=== PATIENT | male | born 1965 | race American Indian/Alaskan Native ===

== ENCOUNTER 2017-08-01 17:17 | Inpatient (IN) | payer MEDICAID, OTHER ==
[2017-08-01 18:24] LABS: EOS # 0.1 K/uL (0.0-0.7); EOS % 2.3 % (0.0-4.0); HEMOGLOBIN 12.6 g/dL (12.0-18.0); LYMPH # 0.8 K/uL (1.0-4.3); LYMPH % 33.2 % (20.0-40.0); MEAN CELL VOLUME 90.8 fL (80.0-94.0); MEAN CORPUSCULAR HEMOGLOBIN 30.6 pg (27.0-31.0); MEAN CORPUSCULAR HGB CONC 33.7 g/dL (33.0-37.0); MEAN PLATELET VOLUME 7.2 fL (7.2-11.7); MONO # 0.4 K/uL (0.0-0.8); MONO % 17.5 % (0.0-10.0); NEUT # 1.1 K/uL (1.8-7.0); NRBC % 0.1 % (0.0-2.0); RBC 4.13 Mil/uL (4.40-5.90); RED CELL DISTRIBUTION WIDTH 13.5 % (11.5-14.5); WHITE BLOOD COUNT 2.5 K/uL (4.8-10.8)
[2017-08-01 18:28] LABS: SQUAMOUS EPITHIAL < 1 /hpf (0-5); URINE BACTERIA RARE (<OCC); URINE BILIRUBIN NEGATIVE (NEGATIVE); URINE BLOOD NEGATIVE (NEGATIVE); URINE CLARITY Clear (Clear); URINE COLOR Yellow (YELLOW); URINE GLUCOSE (UA) NORMAL (Normal); URINE LEUKOCYTE ESTERASE NEG Leu/uL (Negative); URINE PROTEIN NEGATIVE (NEGATIVE); URINE UROBILINOGEN NORMAL mg/dL (0.2-1.0)
[2017-08-01 18:38] LABS: ALB/GLOB RATIO 1.2 (1.0-2.1); ALBUMIN 4.4 g/dL (3.5-5.0); ALT/SGPT 11 U/L (21-72); AST/SGOT 57 U/L (17-59); BLOOD UREA NITROGEN 12 mg/dL (9-20); CALCIUM 9.3 mg/dl (8.6-10.4); GFR AFRICAN-AMERICAN > 60; GFR NON-AFRICAN AMERICAN > 60
[2017-08-01 18:40] LABS: BARBITURATES, UR NEGATIVE (NEGATIVE); BENZODIAZEPINES, UR NEGATIVE (NEGATIVE); OPIATES, UR NEGATIVE (NEGATIVE); PHENCYCLIDINE, UR NEGATIVE (NEGATIVE)
--- NOTE | 2017-08-01 20:25 | C.PDOC ---
History Of Present Illness <Nicholas De Jesus DO - Last Filed: 08/01/17 20:27> <Urbano De Anda - Last Filed: 08/02/17 01:14> 51 year old male presents to the ED for psychiatric evaluation. Patient admits to experiencing auditory and visual hallucinations. He admits to alcohol use earlier today. Patient has history of schizophrenia and has been noncompliant with his medications. Patient denies suicidal/homicidal ideation or any physical complaints at this time. (Nicholas De Jesus DO) History Per: Patient History/Exam Limitations: no limitations Onset/Duration Of Symptoms: Hrs Current Symptoms Are (Timing): Still Present Suicide/Self Injury Attempted (Context): None Modifying Factor(s): None Associated Symptoms: denies: Suicidal Thoughts, Suicidal Plan Involuntary Hold By: None Recent travel outside of the [place]: No Additional History Per: Patient <Nicholas De Jesus DO - Last Filed: 08/01/17 20:27> <Urbano De Anda - Last Filed: 08/02/17 01:14> Chief Complaint (Nursing): Psychiatric Evaluation Past Medical History Reviewed: Historical Data, Nursing Documentation, Vital Signs - Medical History PMH: Anxiety, Bipolar Disorder, Schizophrenia Surgical History: No Surg Hx Family History: States: Unknown Family Hx - Social History Hx Tobacco Use: No Hx Alcohol Use: Yes Hx Substance Use: No - Immunization History Hx Tetanus Toxoid Vaccination: No Hx Influenza Vaccination: No Hx Pneumococcal Vaccination: No <Nicholas De Jesus DO - Last Filed: 08/01/17 20:27> Vital Signs: Last Vital Signs Temp 98 F 08/01/17 22:56 Pulse 110 H 08/01/17 22:56 Resp 20 08/01/17 22:56 BP 120/70 08/01/17 22:56 Pulse Ox 98 08/01/17 22:56 Review Of Systems Psych: Positive for: Other (auditory and visual hallucinations ). Negative for : Suicidal ideation <Nicholas De Jesus DO - Last Filed: 08/01/17 20:27> Physical Exam - Physical Exam Appears: Non-toxic, No Acute Distress Skin: Normal Color, Warm, Dry Head: Atraumatic, Normacephalic Eye(s): bilateral: Normal Inspection Oral Mucosa: Moist Neck: Supple Chest: Symmetrical, No Deformity, No Tenderness Cardiovascular: Rhythm Regular, No Murmur Respiratory: Normal Breath Sounds, No Rales, No Rhonchi, No Wheezing Extremity: Normal ROM, Capillary Refill (less than 2 secods ) Neurological/Psych: Oriented x3, Normal Speech, Normal Cognition <Milkayaredmarko ODENNicholas - Last Filed: 08/01/17 20:27> ED Course And Treatment - Laboratory Results Result Diagrams: 08/01/17 18:18 08/01/17 18:18 O2 Sat by Pulse Oximetry: 94 <Milkayaredmarko DONicholas - Last Filed: 08/01/17 20:27> - Laboratory Results Result Diagrams: 08/01/17 18:18 08/01/17 18:18 Lab Interpretation: Abnormal (ETOH 349H) Reevaluation Time: 01:14 Reassessment Condition: Improved - Physician Consult Information Outcome Of Conversation: 0115: d/w Crisis, Maggie, olga to admit to 5E <Urbano De Anda - Last Filed: 08/02/17 01:14> Medical Decision Making <Nicholas De Jesus DO - Last Filed: 08/01/17 20:27> <Urbano De Anda - Last Filed: 08/02/17 01:14> Medical Decision Making: Progress: Bloodwork and urinalysis ordered and reviewed. (Nicholas De Jesus DO) ETOH abuse, Schizophrenia (Urbano De Anda) Disposition <Liza ODENNicholas - Last Filed: 08/01/17 20:27> Doctor Will See Patient In The: Hospital Counseled Patient/Family Regarding: Studies Performed, Diagnosis - Disposition Disposition Time: 01:14 <Urbano De Anda - Last Filed: 08/02/17 01:14> - Disposition Disposition: HOSPITALIZED Condition: GOOD Forms: [email or web address] (Persian) - Clinical Impression Clinical Impression: Alcohol abuse with intoxication, Schizophrenia - Scribe Statement The provider has reviewed the documentation as recorded by the Scribe (Lyric Chavez) <Nicholas De Jesus DO - Last Filed: 08/01/17 20:27> <Urbano De Anda - Last Filed: 08/02/17 01:14> - Scribe Statement Provider Attestation: All medical record entries made by the Scribe were at my direction and personally dictated by me. I have reviewed the chart and agree that the record accurately reflects my personal performance of the history, physical exam, medical decision making, and the department course for this patient. I have also personally directed, reviewed, and agree with the discharge instructions and disposition. (Nicholas De Jesus DO)
--- NOTE | 2017-08-02 03:38 | PCM.BM ---
<Sylvia Flores - Last Filed: 08/02/17 03:37> Treatment Plan Problems - Problems identified on initial assessmt Suicidal Ideation Date Initiated: 08/02/17 Time Initiated: 02:45 Assessment reference: NA Status: Monitor Alcohol Abuse Date Initiated: 08/02/17 Time Initiated: 02:45 Assessment reference: NA Status: Active Treatment assets and liabiliti Patient Assests: ADL independent, negotiates basic needs Patient Liabilities: substance abuse (ETOH), medical problems (HTN, Hyperlipidemia) - Milieu Protocol Maintain good personal hygiene: daily Encourage regular showers, daily Remind patient to perform daily oral care, every shift Assist patient to perform ADL's Conduct patient checks and document Observation sheet: Q15 minutes Maintain personal safety: every shift Educate patient to report safety concerns to staff, every shift Monitor environment for contraband/sharps Medication safety: Monitor for expected outcome, potential side effects: every shift, Assess barriers to learning: every shift, Assess readiness for medication education: every shift <Mary Jane Eisenberg - Last Filed: 08/04/17 11:36> - Diagnosis (1) Major depressive disorder, recurrent, severe with psychotic features Status: Acute Interventions: 08/04/17 11:36 * Assess/adjust medications daily and /or as needed * See patient on an individual basis 7x/week to assess symptoms of depression * Monitor for side effects & effectiveness of medications * <Hyacinth Lehman - Last Filed: 08/04/17 18:07> Family Contact Family involvement: Patient does not wish Family/SO involvement Family contact: Patient declines to allow family contact at present - Goals for Treatment Patient goals for treatment: "I want to return to [facility] Discharge/Continuing Care - Education Needs Education Needs: Patient Medication, Patient Diagnosis/Disease Process, Patient Coping Skills - Discharge Discharge Criteria: Free of Suicidal thoughts, Normal sleep pattern, Ability to care for self, No longer exhibiting s/s of withdrawal, Reduction of target symptoms Discharge to:: Home - Treatment Team Participation Discussed with Family/SO: No Was Patient/Family/SO present at Treatment Team Meeting: Yes
[2017-08-02] MEDS: Multiple Vitamins Tab PO SCH (09:10)
--- NOTE | 2017-08-02 15:15 | PCM.PSYCH ---
Initial Psychiatric Evaluation - Initial Psychiatric Evaluation Type of Admission: Voluntary Legal Status: Capacity Chief Complaint (in patient's own words): I am not right I hears voices, and sees spots and I came to the hospital for help. History of Present Illness and Precipitating Events: Patient is a 51 years old -Sammar[place] male with history of depression and alcohol use. Patient is known to psychiatric inpatient unit. Patient came with complaints of I am not right, hear voices and sees spots. Patient was poor historian and guarded. History was obtained from previous records. According to previous record patient had multiple same symptoms every time. According to patient he was feeling depression and hearing voices command type telling him to hurt himself and other. However, he denied any intention or plan. Patient reported he relapsed on alcohol and drank 1 pint of alcohol and 2 beers yesterday. Denied use of any other drugs. Current Medications: Active Medications Generic Name Dose Route Start Last Admin Trade Name Freq PRN Reason Stop Dose Admin Chlordiazepoxide 50 mg 08/02/17 06:00 08/02/17 12:04 Librium PO 08/08/17 05:59 50 mg Q6H HARPREET Administration Taper Clonidine HCl 0.1 mg 08/02/17 02:25 Catapres PO Q4H PRN Symptoms of alcohol withdrawl Escitalopram Oxalate 5 mg 08/02/17 10:00 08/02/17 09:10 Lexapro PO 5 mg DAILY HARPREET Administration Folic Acid 1 mg 08/02/17 10:00 08/02/17 09:10 Folic Acid PO 1 mg DAILY HARPREET Administration Hydroxyzine HCl 25 mg 08/02/17 02:29 Atarax PO Q6H PRN Anxiety Multivitamins 1 tab 08/02/17 10:00 08/02/17 09:10 Hexavitamin PO 1 tab DAILY HARPREET Administration Risperidone 0.5 mg 08/02/17 10:00 08/02/17 09:10 Risperdal Tab PO 0.5 mg BID HARPREET Administration Thiamine HCl 100 mg 08/02/17 10:00 08/02/17 09:10 Vitamin B1 Tab PO 100 mg DAILY HARPREET Administration Trazodone HCl 50 mg 08/02/17 02:25 Desyrel PO HS PRN Insomnia Past Psychiatric History - Past Psychiatric History Previous Treatment History: Inpatient Prior Psychiatric Treatment: multiple admissions in the [facility] ([facility]] At [facility]: [facility] Nature of Treatment: medication management History of Abuse: denied History of ETOH/Drug Use: Please see HPI History of Family Illness: denied Pertinent Medical Hx (Current Medical&Sleep Prob, Allergies): Allergies Allergy/AdvReac Type Severity Reaction Status Date / Time No Known Allergies Allergy Unverified 03/23/13 20:51 Unobtainable 08/01/17 High cholesterol, HTN Review of Systems - Review of Systems All systems: reviewed and no additional remarkable complaints except (see HPI) - Constitutional Constitutional: UN - EENT Eyes: UNREMARKABLE Ears: UNREMARKABLE Nose/Mouth/Throat: UNREMARKABLE - Cardiovascular Cardiovascular: As Per HPI - Reproductive: Male Reproductive:Male: UNREMARKABLE - Musculoskeletal Musculoskeletal: UNREMARKABLE - Integumentary Integumentary: UNREMARKABLE - Neurological Neurological: UNREMARKABLE - Psychiatric Psychiatric: As Per HPI - Endocrine Endocrine: UNREMARKABLE - Hematologic/Lymphatic Hematologic: UNREMARKABLE Mental Status Examination - Personal Presentation Personal Presentation: Looks stated age, Dressed appropriate to season - Affect Affect: Constricted - Motor Activity Motor Activity: Calm - Reliability in Providing Information Reliability in Providing Information: Fair - Speech Speech: Organized - Mood Mood: Depressed - Formal Thought Process Formal Thought Process: Hallucinations - Hallucinations/Delusions Hallucinations: Visual, Auditory - Obsessions/Compulsions Obsessions: No Compulsions: None - Cognitive Functions Orientation: Person, Place, Situation, Time Sensorium: Alert Attention/Concentration: Attentive Abstract Thinking: [place] Estimate of Intelligence: Average Judgement: Intact, as evidence by: Good judgement, Intact, as evidence by: Insight regarding need for hospitalization Memory: Recent intact, as evidence by: Ability to recall events of the day - Risk Risk: Withdrawal, Diminished functioning - Strength & Assets Inventory Strength & Assets Inventory: Intelligence, Spiritual affiliations, Cooperative DSM 5 DX - DSM 5 DSM 5 Diagnosis: Major depressive disorder recurrent severe with psychotic features Alcohol use disorder severe, dependence, withdrawal Hypertension Hypercholesterolemia - Recommended/Plan of Treatment Treatment Recommendations and Plan of Treatment: Librium detox Lexapro for depression Risperdal for AVH As needed meds and vitamins Attend groups and activities [place] for abstinence and CBT for relapse prevention Support and psychoeducation Consider and encourage MAT time spend 34 minutes Projected ELOS: 5-7 days Discharge Plan and Discharge Criteria: Please see after care plan
[2017-08-03] MEDS: Multiple Vitamins Tab PO SCH (09:13)
--- NOTE | 2017-08-03 17:53 | PCM.PYCHPN ---
Psychiatric Progress Note - Psychiatric Progress Note Patient seen today, length of contact: 15 minutes Patient Chief Complaint: "My GF breakup with me" Problems Identified/Issues Discussed: Patient was seen. Chart was reviewed important content noted. Nurse input received. Patient has no new complaints. No events overnight. Patient slept well and is eating well. Patient still had depressive symptoms. He reported that he is overwhelmed because his GF left him. He denies suicidal or homicidal ideations. Patient still had auditory hallucinations. No delusions elicited. No paranoia elicited. Patient has remained in good clinical and behavioral control. Symptoms are improving, but needs more time to stabilize. Patient is finding medications beneficial and would like to continue with treatment plan. Patient appreciated that treatment team is trying to help. DSM 5 Symptoms Update: MDD, Severe, recurrent with psychotic psychotic feature alcohol dependence Medication Change: No Medical Record Reviewed: Yes Mental Status Examination - Cognitive Function Orientation: Person, Place, Situation, Time Memory: Intact Attention: WNL Concentration: WNL Association: WNL Fund of Knowledge: WN Decription of patient's judgement and insights: good/good - Mood Mood: Depressed, Anxious - Affect Affect: Constricted - Speech Speech: Appropriate - Formal Thought Process Formal Thought Process: Hallucinations (auditory) - Suicidal Ideation Suicidal Ideation: No Plan: denied - Homicidal Ideation Homicidal Ideation: No Plan: denied Goal/Treatment Plan - Goal/Treatment Plan Need for Continued Stay: Severe depression anxiety, Discharge may exacerbated symptoms Progress Toward Problem(s) and Goals/Treatment Plan: Continue Librium detox Lexapro for depression Risperdal for AVH As needed meds and vitamins Attend groups and activities [place] for abstinence and CBT for relapse prevention Support and psychoeducation
[2017-08-04] MEDS: Multiple Vitamins Tab PO SCH (09:13)
--- NOTE | 2017-08-04 10:26 | PCM.PYCHPN ---
Psychiatric Progress Note - Psychiatric Progress Note Patient seen today, length of contact: 15 minutes Patient Chief Complaint: I was feeling depressed. Problems Identified/Issues Discussed: Patient seen and evaluated, chart reviewed and discussed with the nurse. Patient reports irritability and agitation. He reports racing of thoughts and anxiety, and is asking for stronger medications. He remained isolated and withdrawn. He reports of auditory hallucinations and persecutory delusions. However he remained calm and cooperative. He is taking medications and denies any side effects Symptoms are improving but he needs more time for stabilization. Supportive therapy and psychoeducation were given. Medication Change: No Medical Record Reviewed: Yes Mental Status Examination - Cognitive Function Orientation: Person, Place, Situation, Time Memory: Intact Attention: WNL Concentration: Poor Association: WNL Fund of Knowledge: Poor - Mood Mood: Depressed, Anxious - Affect Affect: Constricted - Speech Speech: Appropriate, Soft - Formal Thought Process Formal Thought Process: Hallucinations (auditory) - Suicidal Ideation Suicidal Ideation: No - Homicidal Ideation Homicidal Ideation: No Goal/Treatment Plan - Goal/Treatment Plan Need for Continued Stay: Severe depression anxiety, Discharge may exacerbated symptoms Progress Toward Problem(s) and Goals/Treatment Plan: Bipolar disorder depressed severe with psychotic features Alcohol use disorder severe Alcohol withdrawal Librium detox Lexapro for depression Risperdal for AVH As needed meds and vitamins Attend groups and activities [place] for abstinence and CBT for relapse prevention Support and psychoeducation Consider and encourage MAT Seroquel 200 mg by mouth daily at bedtime Depakote to 250 mg by mouth twice a day - Smoking Cessation Smoking Cessation Initiated: No
[2017-08-04] MEDS: Divalproex 250 mg DR Tab PO SCH (17:59)
[2017-08-05] MEDS: Multiple Vitamins Tab PO SCH (09:06)
[2017-08-05] MEDS: Divalproex 250 mg DR Tab PO SCH ×2 (09:06→17:19)
--- NOTE | 2017-08-05 14:26 | PCM.PYCHPN ---
Psychiatric Progress Note - Psychiatric Progress Note Patient seen today, length of contact: 15 minutes Patient Chief Complaint: I was feeling depressed. Problems Identified/Issues Discussed: Patient seen and evaluated, chart reviewed and discussed with the nurse. Patient reports irritability and agitation. He reports racing of thoughts and anxiety, and is asking for stronger medications. He remained isolated and withdrawn. He reports of auditory hallucinations and persecutory delusions. However he remained calm and cooperative. He is taking medications and denies any side effects Symptoms are improving but he needs more time for stabilization. Supportive therapy and psychoeducation were given. Medication Change: No Medical Record Reviewed: Yes Mental Status Examination - Cognitive Function Orientation: Person, Place, Situation, Time Memory: Intact Attention: WNL Concentration: Poor Association: WNL Fund of Knowledge: Poor - Mood Mood: Depressed, Anxious - Affect Affect: Constricted - Speech Speech: Appropriate, Soft - Formal Thought Process Formal Thought Process: Hallucinations (auditory) - Suicidal Ideation Suicidal Ideation: No - Homicidal Ideation Homicidal Ideation: No Goal/Treatment Plan - Goal/Treatment Plan Need for Continued Stay: Severe depression anxiety, Discharge may exacerbated symptoms Progress Toward Problem(s) and Goals/Treatment Plan: Bipolar disorder depressed severe with psychotic features Alcohol use disorder severe Alcohol withdrawal Librium detox Lexapro for depression d/c Risperdal for AVH As needed meds and vitamins Attend groups and activities [place] for abstinence and CBT for relapse prevention Support and psychoeducation Consider and encourage MAT Seroquel 200 mg by mouth daily at bedtime Depakote to 250 mg by mouth twice a day
[2017-08-06] MEDS: Divalproex 250 mg DR Tab PO SCH ×2 (09:55→17:34)
[2017-08-06] MEDS: Multiple Vitamins Tab PO SCH (09:55)
--- NOTE | 2017-08-06 17:59 | PCM.PYCHPN ---
Psychiatric Progress Note - Psychiatric Progress Note Patient seen today, length of contact: 15 minutes Patient Chief Complaint: I was feeling depressed. Problems Identified/Issues Discussed: Patient seen and evaluated, chart reviewed and discussed with the nurse. Patient reports irritability and agitation. He reports racing of thoughts and anxiety. He remained isolated and withdrawn. He reports of auditory hallucinations and persecutory delusions. However he remained calm and cooperative. He is taking medications and denies any side effects Symptoms are improving but he needs more time for stabilization. Supportive therapy and psychoeducation were given. Medication Change: No Medical Record Reviewed: Yes Mental Status Examination - Cognitive Function Orientation: Person, Place, Situation, Time Memory: Intact Attention: WNL Concentration: Poor Association: WNL Fund of Knowledge: Poor - Mood Mood: Depressed, Anxious - Affect Affect: Constricted - Speech Speech: Appropriate, Soft - Formal Thought Process Formal Thought Process: Hallucinations (auditory) - Suicidal Ideation Suicidal Ideation: No - Homicidal Ideation Homicidal Ideation: No Goal/Treatment Plan - Goal/Treatment Plan Need for Continued Stay: Severe depression anxiety, Discharge may exacerbated symptoms Progress Toward Problem(s) and Goals/Treatment Plan: Bipolar disorder depressed severe with psychotic features Alcohol use disorder severe Alcohol withdrawal As needed meds and vitamins Attend groups and activities [place] for abstinence and CBT for relapse prevention Support and psychoeducation Consider and encourage MAT Seroquel 200 mg by mouth daily at bedtime Depakote to 250 mg by mouth twice a day Librium detox Lexapro for depression - Smoking Cessation Smoking Cessation Initiated: No
[2017-08-07] MEDS: Multiple Vitamins Tab PO SCH (10:02)
[2017-08-07] MEDS: Divalproex 250 mg DR Tab PO SCH ×2 (10:03→17:22)
--- NOTE | 2017-08-07 14:48 | PCM.PYCHPN ---
Psychiatric Progress Note - Psychiatric Progress Note Patient seen today, length of contact: 15 minutes Patient Chief Complaint: I am feeling very anxious.' Problems Identified/Issues Discussed: Patient seen and evaluated, chart reviewed and discussed with the nurse. Patient reports some improvement in his irritability and agitation. He also reports some improvement in the racing of thoughts and anxiety. He reports some improvement in auditory hallucinations and persecutory delusions. However he remained calm and cooperative. He is taking medications and denies any side effects Symptoms are improving but he needs more time for stabilization. Supportive therapy and psychoeducation were given. Medication Change: Yes (increase depakote) Medical Record Reviewed: Yes Mental Status Examination - Cognitive Function Orientation: Person, Place, Situation, Time Memory: Intact Attention: WNL Concentration: Poor Association: WNL Fund of Knowledge: Poor - Mood Mood: Depressed, Anxious - Affect Affect: Constricted - Speech Speech: Appropriate, Soft - Formal Thought Process Formal Thought Process: Hallucinations (auditory) - Suicidal Ideation Suicidal Ideation: No - Homicidal Ideation Homicidal Ideation: No Goal/Treatment Plan - Goal/Treatment Plan Need for Continued Stay: Severe depression anxiety, Discharge may exacerbated symptoms Progress Toward Problem(s) and Goals/Treatment Plan: Bipolar disorder depressed severe with psychotic features Alcohol use disorder severe Alcohol withdrawal As needed meds and vitamins Attend groups and activities [place] for abstinence and CBT for relapse prevention Support and psychoeducation Consider and encourage MAT Seroquel 200 mg by mouth daily at bedtime Depakote to 500 mg by mouth twice a day Librium detox Lexapro 10 mg
[2017-08-08] MEDS: Divalproex 250 mg DR Tab PO SCH ×2 (10:01→17:14)
[2017-08-08] MEDS: Multiple Vitamins Tab PO SCH (10:01)
[2017-08-09 06:50] VITALS: O2SAT 97
[2017-08-09] MEDS: Multiple Vitamins Tab PO SCH (09:46)
[2017-08-09] MEDS: Divalproex 500 mg ER Tab PO SCH ×2 (09:47→18:07)
--- NOTE | 2017-08-09 19:07 | PCM.PYCHPN ---
Psychiatric Progress Note - Psychiatric Progress Note Patient seen today, length of contact: 15 minutes Patient Chief Complaint: "depressed" Problems Identified/Issues Discussed: The pt is seen, chart reviewed, case discussed with staff. The pt is compliant with medications and reports no side-effects. Symptoms are improving but needs more time to stabilize. After care discussed, support and psychoeducation given. Medication Change: No Medical Record Reviewed: Yes Mental Status Examination - Cognitive Function Orientation: Person, Place, Situation, Time Memory: Intact Attention: WNL Concentration: Poor Association: WNL Fund of Knowledge: Poor - Mood Mood: Depressed, Anxious - Affect Affect: Constricted - Speech Speech: Appropriate, Soft - Formal Thought Process Formal Thought Process: No Impairment - Suicidal Ideation Suicidal Ideation: No - Homicidal Ideation Homicidal Ideation: No Goal/Treatment Plan - Goal/Treatment Plan Need for Continued Stay: Severe depression anxiety, Discharge may exacerbated symptoms, Severe functional impairment Progress Toward Problem(s) and Goals/Treatment Plan: Continue medications Support and psychoeducation daily Attend groups and activities daily After care planning by KIERRA Estimated Date of D/C: 08/11/17 If changed, why: still depressed
--- NOTE | 2017-08-09 19:10 | PCM.PYCHPN ---
Psychiatric Progress Note - Psychiatric Progress Note Patient seen today, length of contact: 16 min Patient Chief Complaint: "Not well" Problems Identified/Issues Discussed: The pt is seen, chart reviewed, case discussed with staff. Support given, CBT and [place] used briefly No new symptoms reported, improving slowly and needs more time No SEs from medications, risks discussed. After care discussed - he also wants to take care of his lump on his scalp Depression treatment discussed. Medication Change: No Medical Record Reviewed: Yes Mental Status Examination - Cognitive Function Orientation: Person, Place, Situation, Time Memory: Intact Attention: WNL Concentration: Poor Association: WNL Fund of Knowledge: Poor - Mood Mood: Depressed, Anxious - Affect Affect: Constricted - Speech Speech: Appropriate, Soft - Formal Thought Process Formal Thought Process: No Impairment - Suicidal Ideation Suicidal Ideation: No - Homicidal Ideation Homicidal Ideation: No Goal/Treatment Plan - Goal/Treatment Plan Need for Continued Stay: Severe depression anxiety, Discharge may exacerbated symptoms, Severe functional impairment Progress Toward Problem(s) and Goals/Treatment Plan: Continue medications Support and psychoeducation daily Attend groups and activities daily After care planning by KIERRA Watson in AM Estimated Date of D/C: 08/11/17
[2017-08-10 06:35] VITALS: RESP 18
[2017-08-10 08:54] LABS: EOS # 0.1 K/uL (0.0-0.7); EOS % 3.6 % (0.0-4.0); HEMOGLOBIN 13.3 g/dL (12.0-18.0); LYMPH # 1.6 K/uL (1.0-4.3); LYMPH % 40.5 % (20.0-40.0); MEAN CELL VOLUME 93.5 fL (80.0-94.0); MEAN CORPUSCULAR HGB CONC 33.2 g/dL (33.0-37.0); MEAN PLATELET VOLUME 8.3 fL (7.2-11.7); MONO # 0.9 K/uL (0.0-0.8); MONO % 22.5 % (0.0-10.0); NEUT # 1.3 K/uL (1.8-7.0); NEUT % 32.4 % (50.0-75.0); NRBC % 0.1 % (0.0-2.0); PLATELET COUNT 190 K/uL (130-400); RED CELL DISTRIBUTION WIDTH 13.2 % (11.5-14.5)
[2017-08-10 08:58] LABS: ALB/GLOB RATIO 1.3 (1.0-2.1); ALBUMIN 4.3 g/dL (3.5-5.0); ALT/SGPT 27 U/L (21-72); AST/SGOT 27 U/L (17-59); BLOOD UREA NITROGEN 12 mg/dL (9-20); CALCIUM 9.6 mg/dl (8.6-10.4); GFR AFRICAN-AMERICAN > 60; GFR NON-AFRICAN AMERICAN > 60
[2017-08-10] MEDS: Multiple Vitamins Tab PO SCH (09:49)
[2017-08-10] MEDS: Divalproex 500 mg ER Tab PO SCH ×2 (09:49→17:40)
[2017-08-10 10:49] LABS: EOSINOPHIL 3 % (0-4); LYMPHOCYTE 44 % (20-40); MONOCYTE 22 % (0-10); NEUTROPHIL 29 % (50-75); PLATELET ESTIMATE NORMAL (NORMAL); REACTIVE LYMPHOCYTES 2 % (0-0); TOTAL CELLS COUNTED 100
[2017-08-10 10:50] LABS: ANISOCYTOSIS SLIGHT; HYPOCHROMIC SLIGHT; POLYCHROMIC SLIGHT
--- NOTE | 2017-08-10 11:48 | PCM.PYCHPN ---
Psychiatric Progress Note - Psychiatric Progress Note Patient seen today, length of contact: 15 min Patient Chief Complaint: "Better today" Problems Identified/Issues Discussed: The pt is seen, chart reviewed, case discussed with staff. The pt is compliant with medications and reports no side-effects. Symptoms are improving but needs more time to stabilize. After care discussed, support and psychoeducation given. Somewhat withdrawn but could be baseline Medication Change: No Medical Record Reviewed: Yes Mental Status Examination - Cognitive Function Orientation: Person, Place, Situation, Time Memory: Intact Attention: WNL Concentration: Poor Association: WNL Fund of Knowledge: Poor - Mood Mood: Depressed, Anxious - Affect Affect: Constricted - Speech Speech: Appropriate, Soft - Formal Thought Process Formal Thought Process: No Impairment - Suicidal Ideation Suicidal Ideation: No - Homicidal Ideation Homicidal Ideation: No Goal/Treatment Plan - Goal/Treatment Plan Need for Continued Stay: Severe depression anxiety, Discharge may exacerbated symptoms, Severe functional impairment Progress Toward Problem(s) and Goals/Treatment Plan: Continue medications Support and psychoeducation daily Attend groups and activities daily After care planning by KIERRA Watson done Estimated Date of D/C: 08/11/17
[2017-08-11 06:45] VITALS: BP 98/62; PULSE 73; TEMP 98.2
[2017-08-11] MEDS: Divalproex 500 mg ER Tab PO SCH (09:05)
[2017-08-11] MEDS: Multiple Vitamins Tab PO SCH (09:05)
--- NOTE | 2017-08-11 10:20 | PCM.PYCHDC ---
Mental Status Examination - Mental Status Examination Orientation: Person, Place, Situation, Time Memory: Intact Mood: Neutral Affect: Constricted Speech: Soft Attention: WNL Concentration: WNL Association: WNL Fund of Knowledge: WNL Formal Thought Process: No Impairment Description of patient's judgement and insight: good, fair Psychotic Thoughts and Behaviors: denies any AVH Suicidal Ideation: No Current Homicidal Ideation?: No Discharge Summary - Discharge Note Reason for Hospitalization: Patient is a 51 years old -[place] male with history of depression and alcohol use. Patient is known to psychiatric inpatient unit. Patient came with complaints of I am not right, hear voices and sees spots. Patient was poor historian and guarded. History was obtained from previous records. According to previous record patient had multiple same symptoms every time. According to patient he was feeling depression and hearing voices command type telling him to hurt himself and other. However, he denied any intention or plan. Patient reported he relapsed on alcohol and drank 1 pint of alcohol and 2 beers yesterday. Denied use of any other drugs. Psychiatric History (includes Medical, Family, Personal Hx): medication management Laboratory Data: Abnormal Lab Results 08/10/17 08:30 Neutrophils % (Manual) 29 L Lymphocytes % (Manual) 44 H Reactive Lymphs % 2 H Monocytes % (Manual) 22 H Eosinophils % (Manual) 3 Platelet Estimate Normal Polychromasia Slight Hypochromasia (manual) Slight Anisocytosis (manual) Slight Consultations:: List each consultation separately and include: 1. Reason for request. 2. Findings. 3. Follow-up Summary of Hospital Course include:: 1. Description of specific treatment plan utilized for patients during their course of treatmen. 2. Summarize the time- course for resolution of acute symptoms and/or regressed behaviors. 3. Describe issues identified and worked on during hospitalization. 4. Describe medication utilized. 5. Describe medical problems identified and treated. 6. Reassessment of suicide risk - Diagnosis (1) Major depressive disorder, recurrent, severe with psychotic features Current Visit: Yes Status: Acute - Final Diagnosis (DSM 5) Condition upon Discharge: GOOD DSM 5: Major depressive disorder recurrent severe with psychotic features Alcohol use disorder severe, dependence, withdrawal Disposition: HOME/ ROUTINE Follow-up Treatment Plan: Bipolar disorder depressed severe with psychotic features Alcohol use disorder severe Alcohol withdrawal As needed meds and vitamins Attend groups and activities IA for abstinence and CBT for relapse prevention Support and psychoeducation Consider and encourage MAT Seroquel 200 mg by mouth daily at bedtime Depakote to 500 mg by mouth twice a day Librium detox Lexapro 10 mg Prescriptions/Medication Reconciliation: Divalproex [Depakote ER] 500 mg PO BID #60 ter Escitalopram [Lexapro] 10 mg PO DAILY #30 tab QUEtiapine [SEROquel] 200 mg PO HS #30 tab
== END 2017-08-11 13:40 | disposition home or self-care (01) | DRG 430 ==
LOC: C.ER 17:17 → C.5E 08-02 01:14
PROVIDERS: ADMIT Psychiatry & Neurology Psychiatry; ATTEND Psychiatry & Neurology Psychiatry
PROC: GZHZZZZ Group Psychotherapy (ICD-10-PCS; principal; 2017-08-02)
PROC: HZ2ZZZZ Detoxification Services for Substance Abuse Treatment (ICD-10-PCS; 2017-08-02)
PROC: HZ52ZZZ Individual Psychotherapy for Substance Abuse Treatment, Cognitive-Behavioral (ICD-10-PCS; 2017-08-02)
PROC: HZ59ZZZ Individual Psychotherapy for Substance Abuse Treatment, Supportive (ICD-10-PCS; 2017-08-02)
PROC: HZ56ZZZ Individual Psychotherapy for Substance Abuse Treatment, Psychoeducation (ICD-10-PCS; 2017-08-02)
PROC: HZ42ZZZ Group Counseling for Substance Abuse Treatment, Cognitive-Behavioral (ICD-10-PCS; 2017-08-02)
PROC: HZ46ZZZ Group Counseling for Substance Abuse Treatment, Psychoeducation (ICD-10-PCS; 2017-08-02)
PROC: GZ58ZZZ Individual Psychotherapy, Cognitive-Behavioral (ICD-10-PCS; 2017-08-02)
PROC: GZ56ZZZ Individual Psychotherapy, Supportive (ICD-10-PCS; 2017-08-02)
DX: F33.3 Major depressive disorder, recurrent, severe with psychotic symptoms (principal); F10.230 Alcohol dependence with withdrawal, uncomplicated; Y90.8 Blood alcohol level of 240 mg/100 ml or more; F41.9 Anxiety disorder, unspecified; E78.00 Pure hypercholesterolemia, unspecified; I10 Essential (primary) hypertension; Z91.14 Patient's other noncompliance with medication regimen